=== PATIENT | male | born 1940 | race Caucasian/White ===

== ENCOUNTER 2025-03-19 13:54 | Inpatient (IN) ==
--- NOTE | 2025-03-19 14:31 | XRay Report ---
XR chest 1V portable HISTORY: 84 years-old Male Dysrhythmia acute chest pain COMPARISON: None TECHNIQUE: AP view of the chest FINDINGS: Cardiac silhouette is upper limits of normal in size. Median sternotomy with CABG. Nipple shadows pro ject over the lung bases. Surgical clips of the right neck. No pneumothorax, pleural effusion or pulm onary edema. Mild linear subsegmental bibasilar atelectasis/scarring. 10 mm nodular density projects over the lateral right midlung/posterior right seventh rib. IMPRESSION: 1. Mild bibasilar atelectasis/scarring without acute processes of the chest. 2. A 10 mm calcified granuloma versus rib bone island of the right lateral midlung. ACT 112: Negative or not required by law. The above report was generated using voice recognition software. It may contain grammatical, syntax o r spelling errors. Electronically signed by: Felix Hernandez M.D. 03/19/2025 2:30 PM
--- NOTE | 2025-03-19 14:39 | Emergency Department Note ---
Impression & Plan Syncope and collapse ED Provider Note NAME: ALEX CORTES AGE: 84 SEX: Male INFORMANT: Patient and ED PROVIDER(S): Yovani Hein MD CHIEF COMPLAINT: Syncope PLAN: Disposition: Admitted Outpatient prescription management: none Referral: None MEDICAL DECISION MAKING: Patient presented because of an unprovoked syncopal episode. Patient's ECG did show septal and inferior Q waves. No ST elevation. Cardiac monitoring was reviewed over 3 hours in the emergency department and patient had frequent PVCs but no obvious dysrhythmia. Patient had no additional syncopal episodes. His CBC and chemistry panels were unremarkable. Patient did have elevation of TSH but normal T4. Patient states he has just had his thyroid medication adjusted by his primary. Patient was mildly hypertensive. He is in the high risk for syncope and I discussed further evaluation and management treatment in the hospital. Patient was in agreement. Consultation was made with the [facility]ist service. Case was discussed and diagnostics were reviewed. Patient was evaluated in the ER admitted for further management. Care/management discussed with: manager case management Level of care consideration(s): After review of the information above and other included data, I feel the patient requires escalation of care to admission Triage Nursing notes: reviewed and agree them. Vital Signs: reviewed and remarkable for hypertension Additional History obtained from: Patient's regarding his health today and the details of the episode. Chronic Medical/Social Conditions affecting care: CAD Prior/ Outside/ External records reviewed: None available Differential Diagnosis: Vasovagal event, dehydration, infection, hypoglycemia, electrolyte abnormalities, cardiac sources, intracerebral event, pulmonary embolism, seizure, toxicologic, neurologic, as well as other pathologies. Diagnostics, independently interpreted by me: ECG: Twelve-lead ECG reveals a sinus rhythm with PACs at 76 bpm. Septal and inferior Q waves. No ST elevation or depression. No prior for comparison. Cardiac Monitoring: Cardiac monitoring ordered by me: The patient was placed on continuous cardiac monitoring and observed. The revealed a sinus rhythm with frequent PVCs. No evidence of dysrhythmia Medical decision rules: none Imaging studies: Chest x-ray. Findings: A chest x-ray was performed and revealed no pneumothorax, effusion, infiltrate, pulmonary edema, free air under the diaphragm, or wide mediastinum. Impression: No acute disease. Calcification noted in the right lung. Discussed with patient and he feels he was aware of this. HPI: 84 year old Male arrives for evaluation of syncope. This started abruptly just [employer] and is the second time in about two months. Pt notes feeling fine today. Occurred suddenly, witnessed by bystanders, caught and lowered down. No trauma. Lasted about 2 minutes. The patient also notes the following associated symptoms, none. Saw Cardio in [place] 2 months ago on first episode. 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 Currently on Keytruda for skin cancer. The patient has taken no medication for relieving factors. Current pain is rated as 0/10. Notes a lot of exertion today and decreased PO intake. Pt denies headache, fevers, chills, diaphoresis, visual changes, neck pain, chest pain, breathing difficulties, nausea, vomiting, abdominal pain, back pain, melena, hematochezia, urinary symptoms, numbness, weakness, lymphadenopathy, rash, or other complaints. PAST MEDICAL HISTORY: See Below, CAD, skin cancer PAST SURGICAL HISTORY: See Below, CABG x4 20 yrs ago SOCIAL HISTORY: See Below, HOME MEDICATIONS: See Below ALLERGIES: See Below VITALS: See Below PHYSICAL EXAMINATION: GENERAL: Awake, alert, age appropriate-appearing, in no distress HENT: Normocephalic, atraumatic. Oropharynx unremarkable. EYES: Normal conjunctiva. Sclera non-icteric. NECK: Inspection normal. Non-tender. Supple. No nuchal rigidity. FROM. No masses. RESPIRATORY: Clear to auscultation. No wheezes. No rales. Normal respiratory effort. CARDIAC: Normal rate. Normal rhythm. No murmurs. No rubs. Extremities warm and well perfused. Pulses equal. No JVD. GI: Soft, non-distended. No tenderness to palpation. No rebound or guarding. No masses. RECTAL: Deferred. MUSCULOSKELETAL: Atraumatic. Chest examination reveals no tenderness. The back is symmetrical on inspection without obvious abnormality. There is no CVA tenderness to palpation. No joint edema. LOWER EXTREMITIES: Calves are equal size bilaterally and non-tender. No edema. No discoloration. NEURO: Normal sensorium. No sensory or motor deficits noted. SKIN: No rash or jaundice noted. PROCEDURES: none CRITICAL CARE: none OBSERVATION NOTE: none Past Med/Surg History Problem List (Updated 03/19/25 @ 17:08 by Yovani Hein MD) Syncope and collapse (Acute) Social History Smoking Status: Former smoker Feels Safe at Home: Yes Allergies Allergies Allergy/AdvReac Type Severity Reaction Status Date / Time clopidogrel [From Plavix] Allergy Intermediate Rash Verified 03/19/25 17:06 Home Meds Home Medications Medication Instructions Recorded Confirmed amlodipine 5 mg tablet 5 mg PO DAILY 03/19/25 03/19/25 aspirin 81 mg tablet,delayed 81 mg PO DAILY 03/19/25 03/19/25 release atorvastatin 40 mg tablet 40 mg PO DAILY 03/19/25 03/19/25 levothyroxine 50 mcg tablet 50 mcg PO DAILYBB 03/19/25 03/19/25 lisinopril 10 mg tablet 10 mg PO DAILY 03/19/25 03/19/25 penicillin V potassium 500 mg 500 mg PO QID 03/19/25 03/19/25 tablet Results & Data (ED) Vital Signs Vital Signs - 24 hr 03/19/25 13:59 03/19/25 14:21 03/19/25 14:21 Temperature 36.5 C Temperature Source Oral Pulse Rate 74 75 77 Pulse Rate [Right Finger] Pulse Rate from SpO2 Sensor 78 Respiratory Rate 18 20 Respiratory Effort / Characteristics Non-Labored Spontaneous Respiratory Depth Normal Respiratory Pattern Regular Blood Pressure 174/89 H Blood Pressure [Right Arm] Blood Pressure Mean 117 Blood Pressure Mean [Right Arm] Blood Pressure Position Sitting Pulse Oximetry 97 97 Oxygen Delivery Method Room Air Sepsis Recent Fever Within 48 Hours No Sepsis New/Unexplained Change in Mental Status No Sepsis Action Taken by Nursing No Action Required 03/19/25 14:30 03/19/25 15:13 03/19/25 17:03 Temperature Temperature Source Pulse Rate 73 Pulse Rate [Right Finger] 72 74 Pulse Rate from SpO2 Sensor Respiratory Rate 18 20 16 Respiratory Effort / Characteristics Non-Labored Spontaneous Non-Labored Spontaneous Respiratory Depth Normal Normal Respiratory Pattern Regular Blood Pressure 160/92 H Blood Pressure [Right Arm] 193/93 H 186/104 H Blood Pressure Mean 114 Blood Pressure Mean [Right Arm] 126 131 Blood Pressure Position Pulse Oximetry 96 99 98 Oxygen Delivery Method Room Air Room Air Room Air Sepsis Recent Fever Within 48 Hours Sepsis New/Unexplained Change in Mental Status Sepsis Action Taken by Nursing Laboratory Data 03/19/25 15:36 03/19/25 14:14 Lab Results 03/19/25 03/19/25 03/19/25 Range/Units 14:14 15:36 16:19 WBC Cancelled 6.87 RBC Cancelled 4.55 L Hgb Cancelled 14.0 Hct Cancelled 40.0 L MCV Cancelled 87.9 MCH Cancelled 30.8 MCHC Cancelled 35.0 RDW Std Deviation Cancelled 44.5 RDW Coeff of [place] Cancelled 13.9 Plt Count Cancelled 188 MPV Cancelled 8.6 L Immature Gran % (Auto) Cancelled 0.4 Neut % (Auto) Cancelled 84.2 Lymph % (Auto) Cancelled 5.4 Alcorn % (Auto) Cancelled 8.0 Eos % (Auto) Cancelled 1.6 Baso % (Auto) Cancelled 0.4 Neut # (Auto) Cancelled 5.78 Lymph # (Auto) Cancelled 0.37 L [place] # (Auto) Cancelled 0.55 Eos # (Auto) Cancelled 0.11 Baso # (Auto) Cancelled 0.03 Immature Gran # (Auto) Cancelled 0.03 Absolute Nucleated RBC Cancelled Nucleated RBC % (auto) Cancelled Neutrophils % (Manual) Cancelled Band Neutrophils % Cancelled Lymphocytes % (Manual) Cancelled Prolymphocyte % Cancelled Reactive Lymphs % (Man) Cancelled Monocytes % (Manual) Cancelled Eosinophils % (Manual) Cancelled Basophils % (Manual) Cancelled Metamyelocytes % (Man) Cancelled Myelocytes % (Man) Cancelled Promyelocytes % (Man) Cancelled Blast Cells % (Manual) Cancelled Plasma Cell % (Manual) Cancelled Other Cells % Cancelled Nucleated RBC % Cancelled Neutrophils # (Manual) Cancelled Band Neutrophils # Cancelled Total Absolute Neuts Cancelled Lymphocytes # (Manual) Cancelled Prolymphocyte # Cancelled Reactive Lymphs # Cancelled Total Abs Lymphocytes Cancelled Monocytes # (Manual) Cancelled Eosinophils # (Manual) Cancelled Basophils # (Manual) Cancelled Metamyelocytes # (Man) Cancelled Myelocytes # (Manual) Cancelled Promyelocytes # (Man) Cancelled Blast Cells # (Man) Cancelled Plasma Cell # (Manual) Cancelled Other Cells # Cancelled Nucleated RBCs # (Man) Cancelled Hypersegmented Neuts Cancelled Hyposegmented Neuts Cancelled Hypogranular Neuts Cancelled Large Granular Lymphs Cancelled # Lrg Granular Lymphs Cancelled Hairy Cells Cancelled Smudge Cells Cancelled Toxic Granulation Cancelled Toxic Vacuolation Cancelled Dohle Bodies Cancelled [place] Rods Cancelled Platelet Estimate Cancelled Hypogranular Platelets Cancelled Giant Platelets Cancelled Platelet Satelliting Cancelled RBC Morphology Cancelled Polychromasia Cancelled Hypochromasia Cancelled Poikilocytosis Cancelled Basophilic Stippling Cancelled Anisocytosis Cancelled Microcytosis Cancelled Macrocytosis Cancelled Spherocytes Cancelled Pappenheimer Bodies Cancelled Sickle Cells Cancelled Target Cells Cancelled Tear Drop Cells Cancelled Ovalocytes Cancelled Stomatocytes Cancelled [place] Bodies Cancelled Echinocytes Cancelled Acanthocytes (Spur) Cancelled Rouleaux Cancelled RBC Agglutinates Cancelled Schistocytes Cancelled Sezary Cell Cancelled PT 11.3 (9.0-12.0) Seconds INR 1.0 (0.9-1.1) APTT 24 (21-31) Seconds PTT Ratio 0.9 Sodium 132 L (136-145) mmol/L Potassium 4.0 (3.5-5.1) mmol/L Chloride 101 (98-107) mmol/L Carbon Dioxide 23 (21-32) mmol/L Anion Gap 8 (3-11) BUN 19 (6-23) mg/dl Creatinine 0.80 (0.6-1.4) mg/dl Est Cr Clr Drug Dosing 71.9 ml/min eGFR 86.73 BUN/Creatinine Ratio 23.8 H (10-20) Glucose 124 H (70-99(Fasting)) mg/dl Calcium 9.0 (8.6-10.3) mg/dl Magnesium 1.8 (1.7-2.4) mg/dl Total Bilirubin 0.7 (0.2-1.0) mg/dl AST 15 (13-39) U/L ALT 9 (7-52) U/L Alkaline Phosphatase 119 H (34-104) U/L Troponin I High Sens 6.4 (0-20) pg/ml Total Protein 7.0 (6.0-8.3) gm/dl Albumin 4.1 (3.4-5.0) gm/dl Globulin 2.9 (2.5-4.0) gm/dl Albumin/Globulin Ratio 1.4 (0.9-2) TSH 22.788 H (0.300-4.500) uIu/ml Free T4 0.97 (0.61-1.60) ng/dl Urine Color Yellow Urine Appearance Clear (Clear) Urine pH 7.0 (4.5-7.5) Ur Specific [place] 1.016 (1.000-1.030) Urine Protein 1+ H (Negative) Urine Glucose (UA) Negative (Negative) Urine Ketones Negative (Negative) Urine Blood Negative (Negative) Urine Nitrite Negative (Negative) Urine Bilirubin Negative (Negative) Urine Urobilinogen Positive H (Negative) Ur Leukocyte Esterase Negative (Negative) Urine WBC (Auto) 0-5 (0-5) /hpf Urine RBC (Auto) 0-2 (0-2) /hpf U Hyaline Cast (Auto) 0-2 (0-2) /lpf U Epithel Cells (Auto) 0-2 (0-2) /hpf Urine Bacteria (Auto) None Seen (None Seen) Urine Comment Blood Parasites ID Cancelled Imaging Data Radiologist's Impression: Chest X-Ray 03/19/25 14:06 XR chest 1V portable HISTORY: 84 years-old Male Dysrhythmia acute chest pain COMPARISON: None TECHNIQUE: AP view of the chest FINDINGS: Cardiac silhouette is upper limits of normal in size. Median sternotomy with CABG. Nipple shadows project over the lung bases. Surgical clips of the right neck. No pneumothorax, pleural effusion or pulmonary edema. Mild linear subsegmental bibasilar atelectasis/scarring. 10 mm nodular density projects over the lateral right midlung/posterior right seventh rib. IMPRESSION: 1. Mild bibasilar atelectasis/scarring without acute processes of the chest. 2. A 10 mm calcified granuloma versus rib bone island of the right lateral midlung. ACT 112: Negative or not required by law. The above report was generated using voice recognition software. It may contain grammatical, syntax or spelling errors. Electronically signed by: Felix Hernandez M.D. 03/19/2025 2:30 PM Discharge Plan Visit Data Chief Complaint: Syncope Stated Complaint: SYNCOPE ED Provider: Yovani Hein Discharge Problem: Syncope and collapse Patient Disposition: Admitted As Inpatient Condition: Good Prescriptions Prescriptions: No Action atorvastatin 40 mg tablet 40 mg PO DAILY penicillin V potassium 500 mg tablet 500 mg PO QID Rx Instructions: STARTED 7/23/25 FOR 10 DAYS amlodipine 5 mg tablet 5 mg PO DAILY aspirin 81 mg Tablet,Delayed Release (Dr/Ec) 81 mg PO DAILY levothyroxine 50 mcg tablet 50 mcg PO DAILYBB lisinopril 10 mg tablet 10 mg PO DAILY Referrals Referrals: PCP,NO [Physician] -
[2025-03-19 14:42] LABS: Anion Gap 8.0 (3-11); Bilirubin,Total 0.7 mg/dl (0.2-1.0); Calcium 9.0 mg/dl (8.6-10.3); Carbon Dioxide 23.0 mmol/L (21-32); Chloride 101.0 mmol/L (98-107); Magnesium 1.8 mg/dl (1.7-2.4); Potassium 4.0 mmol/L (3.5-5.1); Sodium 132.0 mmol/L (136-145)
[2025-03-19 14:48] LABS: Alanine Aminotransferase 9.0 U/L (7-52); Albumin Globulin Ratio 1.4 (0.9-2); Alkaline Phosphatase 119.0 U/L (34-104); Blood Urea Nitrogen 19.0 mg/dl (6-23); Creatinine Clr Calc Pharmacy 71.9 ml/min; Globulin 2.9 gm/dl (2.5-4.0); Glucose 124.0 mg/dl (70-99(Fasting)); Total Protein 7.0 gm/dl (6.0-8.3)
[2025-03-19 14:51] LABS: INR 1.0 (0.9-1.1); Partial Thromboplastin Time 24 Seconds (21-31); Prothrombin Time 11.3 Seconds (9.0-12.0)
[2025-03-19 15:02] LABS: Thyroid Stimulating Hormone 22.788 uIu/ml (0.300-4.500)
[2025-03-19 15:50] LABS: Hematocrit (blood only) 40.0 % (42.0-52.0); Hemoglobin 14.0 g/dl (14.0-18.0); Immature Granulocytes # (auto) 0.03 K/uL (0.01-0.20); Immature Granulocytes % (auto) 0.4 %; Mean Corpuscular Hemoglobin 30.8 pg (25.0-34.0); Mean Corpuscular Volume 87.9 fL (80.0-100.0); Platelet Count 188 K/uL (130-400); RDW Standard Deviation 44.5 fL (36.4-46.3); Red Blood Count 4.55 M/uL (4.70-6.10); White Blood Count 6.87 K/ul (4.8-10.8)
[2025-03-19 16:47] LABS: Appearance Urine Clear (Clear); Bacteria Urine Automated None Seen (None Seen); Cast Urine Automated 0-2 /lpf (0-2); Epithelial Cell Urine Auto 0-2 /hpf (0-2); Glucose Urine UA Negative (Negative); RBC Urine Automated 0-2 /hpf (0-2); WBC Urine Automated 0-5 /hpf (0-5)
--- NOTE | 2025-03-19 18:01 | History & Physical Report ---
Date of Service March 19, 2025 Assessment & Plan (1) Syncope and collapse: (2) HTN (hypertension): (3) HLD (hyperlipidemia): (4) Skin cancer: Plan The patient is a 84-year-old male who presented to the ED on 03/19/2025 s/p syncopal episode lasting 2 minutes Syncope: Check CT head, EKG unremarkable, chest x-ray unremarkable, labs fairly unremarkable Telemetry monitoring, consult cardiology, consider Holter monitor on DC Check MRI brain for completeness, check echo, orthostatic BPs Patient on Keytrudapossible side effect of cardiac arrhythmia Hx HTN/HLD/CABG25 years ago: -Continue amlodipine, lisinopril, statin, aspirin Recent dental infection: Continue home penicillin for 10 days as directed, started 2 days ago Hx hypothyroidism: -Elevated TSH, recently increased synthroid from 25mcg to 50mcg 7 days ago, monitor TSH in 6 weeks. Hx skin cancer on Keytruda -follow up outpatient with derm. A total of 60 minutes were spent with chart review/reviewing diagnostic data/discussion with consultants/facilitating plan of care Full code DVT prophylaxis: SCDs History of Present Illness Chief Complaint: Syncope Primary Care Provider: Carlos Redman MD The patient is an 84-year-old male with a past medical history of HTN, HLD, bypass 25 years ago, skin cancer on immunotherapy (keytruda) who presents to the ED on 03/19/2025 after a 2-minute syncopal episode today. Patient reports that he was running errands with his this morning he went to about 5 stores. He reports going to a [employer] restaurant for lunch and when he walked into the restaurant he passed out. He denies any dizziness or lightheadedness prior to this. He reports that one of the workers at the [employer] caught him. Per the , patient was unresponsive for about 2 minutes and came to. No confusion or seizure-like activity associated with this. He also reports about 2 months ago having a similar episode where he passed out. Also under similar circumstances with running around all day and not drinking much water. He saw operators teacher and had an echo done and reports the operators teacher told him he had narrowing of the aorta. His medications were not adjusted at that time and he was to follow-up in a few months. He denies any chest pain or shortness of breath. He denies any recent respiratory viruses any fever/chills. Denies any nausea/vomiting/diarrhea. Reports being very active on a daily basis. On arrival to the ED, labs are fairly unremarkable. NA 132, glucose 124, alk phos 119. TSH 22.788, his levothyroxine was recently adjusted from 25 mcg to 50 mcg by his PCP about a week ago. His chest x-ray was negative. His EKG was unremarkable. He will be admitted for further management of syncopal episodes Allergies Allergy/AdvReac Type Severity Reaction Status Date / Time clopidogrel [From Plavix] Allergy Intermediate Rash Verified 03/19/25 17:06 Home Medications Medication Instructions Recorded Confirmed Type amlodipine 5 mg tablet 5 mg PO DAILY 03/19/25 03/19/25 History aspirin 81 mg tablet,delayed 81 mg PO DAILY 03/19/25 03/19/25 History release atorvastatin 40 mg tablet 40 mg PO DAILY 03/19/25 03/19/25 History levothyroxine 50 mcg tablet 50 mcg PO DAILYBB 03/19/25 03/19/25 History lisinopril 10 mg tablet 10 mg PO DAILY 03/19/25 03/19/25 History penicillin V potassium 500 mg 500 mg PO QID 03/19/25 03/19/25 History tablet Past Med/Surg History Problem List (Updated 03/19/25 @ 18:12 by CARLOS Zuniga) Skin cancer HLD (hyperlipidemia) HTN (hypertension) Syncope and collapse (Acute) Social History Smoking Status: Former smoker Feels Safe at Home: Yes Review of Systems Review of Systems: All systems reviewed & are unremarkable except as noted in HPI & below Physical Exam Constitutional: WD/WN, vitals as above Eyes: PERRL, conjunctivae normal, anicteric sclerae ENMT: external ear and nose normal, oropharynx normal Neck: trachea midline, no thyromegaly Respiratory: normal respiratory effort, lungs clear to auscultation Cardiovascular: RRR, no murmur, no edema Gastrointestinal (Abdomen): normal bowel sounds, soft, nontender, no h epatosplenomegaly Musculoskeletal: no cyanosis or clubbing, extremities motor strength 5/5 Neurologic: PERRL, EOMI, accommodation nl, no face palsy, no dysarthria Psychiatric: A+Ox3, euthymic affect Lymphatic: no cervical or axillary lymphadenopathy Results & Data Results & Data Vital Signs (Past 12 Hours) Vital Signs Temp Pulse Pulse Resp BP BP Pulse Ox 03/19/25 17:03 74 16 186/104 H 98 03/19/25 15:13 72 20 193/93 H 99 03/19/25 14:30 73 18 160/92 H 96 03/19/25 14:21 77 20 97 03/19/25 14:21 75 03/19/25 13:59 36.5 C 74 18 174/89 H 97 O2 Del Method 03/19/25 17:03 Room Air 03/19/25 15:13 Room Air 03/19/25 14:30 Room Air 03/19/25 14:21 03/19/25 14:21 03/19/25 13:59 Room Air Diagnostic Findings Laboratory Results WBC 6.87 K/ul (4.8-10.8) 03/19/25 15:36 RBC 4.55 M/uL (4.70-6.10) L 03/19/25 15:36 Hgb 14.0 g/dl (14.0-18.0) 03/19/25 15:36 Hct 40.0 % (42.0-52.0) L 03/19/25 15:36 MCV 87.9 fL (80.0-100.0) 03/19/25 15:36 MCH 30.8 pg (25.0-34.0) 03/19/25 15:36 MCHC 35.0 g/dL (32.0-36.0) 03/19/25 15:36 RDW Std Deviation 44.5 fL (36.4-46.3) 03/19/25 15:36 RDW Coeff of [place] 13.9 % (11.5-14.5) 03/19/25 15:36 Plt Count 188 K/uL (130-400) 03/19/25 15:36 MPV 8.6 fL (9.4-12.4) L 03/19/25 15:36 Immature Gran % (Auto) 0.4 % 03/19/25 15:36 Neut % (Auto) 84.2 % 03/19/25 15:36 Lymph % (Auto) 5.4 % 03/19/25 15:36 [place] % (Auto) 8.0 % 03/19/25 15:36 Eos % (Auto) 1.6 % 03/19/25 15:36 Baso % (Auto) 0.4 % 03/19/25 15:36 Neut # (Auto) 5.78 K/uL (1.40-6.50) 03/19/25 15:36 Lymph # (Auto) 0.37 K/uL (1.20-3.40) L 03/19/25 15:36 [place] # (Auto) 0.55 K/uL (0.11-0.59) 03/19/25 15:36 Eos # (Auto) 0.11 K/uL (0.00-0.50) 03/19/25 15:36 Baso # (Auto) 0.03 K/uL (0.00-0.20) 03/19/25 15:36 Immature Gran # (Auto) 0.03 K/uL (0.01-0.20) 03/19/25 15:36 Absolute Nucleated RBC Cancelled 03/19/25 14:14 Nucleated RBC % (auto) Cancelled 03/19/25 14:14 Neutrophils % (Manual) Cancelled 03/19/25 14:14 Band Neutrophils % Cancelled 03/19/25 14:14 Lymphocytes % (Manual) Cancelled 03/19/25 14:14 Prolymphocyte % Cancelled 03/19/25 14:14 Reactive Lymphs % (Man) Cancelled 03/19/25 14:14 Monocytes % (Manual) Cancelled 03/19/25 14:14 Eosinophils % (Manual) Cancelled 03/19/25 14:14 Basophils % (Manual) Cancelled 03/19/25 14:14 Metamyelocytes % (Man) Cancelled 03/19/25 14:14 Myelocytes % (Man) Cancelled 03/19/25 14:14 Promyelocytes % (Man) Cancelled 03/19/25 14:14 Blast Cells % (Manual) Cancelled 03/19/25 14:14 Plasma Cell % (Manual) Cancelled 03/19/25 14:14 Other Cells % Cancelled 03/19/25 14:14 Nucleated RBC % Cancelled 03/19/25 14:14 Neutrophils # (Manual) Cancelled 03/19/25 14:14 Band Neutrophils # Cancelled 03/19/25 14:14 Total Absolute Neuts Cancelled 03/19/25 14:14 Lymphocytes # (Manual) Cancelled 03/19/25 14:14 Prolymphocyte # Cancelled 03/19/25 14:14 Reactive Lymphs # Cancelled 03/19/25 14:14 Total Abs Lymphocytes Cancelled 03/19/25 14:14 Monocytes # (Manual) Cancelled 03/19/25 14:14 Eosinophils # (Manual) Cancelled 03/19/25 14:14 Basophils # (Manual) Cancelled 03/19/25 14:14 Metamyelocytes # (Man) Cancelled 03/19/25 14:14 Myelocytes # (Manual) Cancelled 03/19/25 14:14 Promyelocytes # (Man) Cancelled 03/19/25 14:14 Blast Cells # (Man) Cancelled 03/19/25 14:14 Plasma Cell # (Manual) Cancelled 03/19/25 14:14 Other Cells # Cancelled 03/19/25 14:14 Nucleated RBCs # (Man) Cancelled 03/19/25 14:14 Hypersegmented Neuts Cancelled 03/19/25 14:14 Hyposegmented Neuts Cancelled 03/19/25 14:14 Hypogranular Neuts Cancelled 03/19/25 14:14 Large Granular Lymphs Cancelled 03/19/25 14:14 # Lrg Granular Lymphs Cancelled 03/19/25 14:14 Hairy Cells Cancelled 03/19/25 14:14 Smudge Cells Cancelled 03/19/25 14:14 Toxic Granulation Cancelled 03/19/25 14:14 Toxic Vacuolation Cancelled 03/19/25 14:14 Dohle Bodies Cancelled 03/19/25 14:14 Juwan Rods Cancelled 03/19/25 14:14 Platelet Estimate Cancelled 03/19/25 14:14 Hypogranular Platelets Cancelled 03/19/25 14:14 Giant Platelets Cancelled 03/19/25 14:14 Platelet Satelliting Cancelled 03/19/25 14:14 RBC Morphology Cancelled 03/19/25 14:14 Polychromasia Cancelled 03/19/25 14:14 Hypochromasia Cancelled 03/19/25 14:14 Poikilocytosis Cancelled 03/19/25 14:14 Basophilic Stippling Cancelled 03/19/25 14:14 Anisocytosis Cancelled 03/19/25 14:14 Microcytosis Cancelled 03/19/25 14:14 Macrocytosis Cancelled 03/19/25 14:14 Spherocytes Cancelled 03/19/25 14:14 Pappenheimer Bodies Cancelled 03/19/25 14:14 Sickle Cells Cancelled 03/19/25 14:14 Target Cells Cancelled 03/19/25 14:14 Tear Drop Cells Cancelled 03/19/25 14:14 Ovalocytes Cancelled 03/19/25 14:14 Stomatocytes Cancelled 03/19/25 14:14 [place] Bodies Cancelled 03/19/25 14:14 Echinocytes Cancelled 03/19/25 14:14 Acanthocytes (Spur) Cancelled 03/19/25 14:14 Rouleaux Cancelled 03/19/25 14:14 RBC Agglutinates Cancelled 03/19/25 14:14 Schistocytes Cancelled 03/19/25 14:14 Sezary Cell Cancelled 03/19/25 14:14 PT 11.3 Seconds (9.0-12.0) 03/19/25 14:14 INR 1.0 (0.9-1.1) 03/19/25 14:14 APTT 24 Seconds (21-31) 03/19/25 14:14 PTT Ratio 0.9 03/19/25 14:14 Sodium 132 mmol/L (136-145) L 03/19/25 14:14 Potassium 4.0 mmol/L (3.5-5.1) 03/19/25 14:14 Chloride 101 mmol/L (98-107) 03/19/25 14:14 Carbon Dioxide 23 mmol/L (21-32) 03/19/25 14:14 Anion Gap 8 (3-11) 03/19/25 14:14 BUN 19 mg/dl (6-23) 03/19/25 14:14 Creatinine 0.80 mg/dl (0.6-1.4) 03/19/25 14:14 Est Cr Clr Drug Dosing 71.9 ml/min 03/19/25 14:14 eGFR 86.73 03/19/25 14:14 BUN/Creatinine Ratio 23.8 (10-20) H 03/19/25 14:14 Glucose 124 mg/dl (70-99(Fasting)) H 03/19/25 14:14 Calcium 9.0 mg/dl (8.6-10.3) 03/19/25 14:14 Magnesium 1.8 mg/dl (1.7-2.4) 03/19/25 14:14 Total Bilirubin 0.7 mg/dl (0.2-1.0) 03/19/25 14:14 AST 15 U/L (13-39) 03/19/25 14:14 ALT 9 U/L (7-52) 03/19/25 14:14 Alkaline Phosphatase 119 U/L (34-104) H 03/19/25 14:14 Troponin I High Sens 6.4 pg/ml (0-20) 03/19/25 14:14 Total Protein 7.0 gm/dl (6.0-8.3) 03/19/25 14:14 Albumin 4.1 gm/dl (3.4-5.0) 03/19/25 14:14 Globulin 2.9 gm/dl (2.5-4.0) 03/19/25 14:14 Albumin/Globulin Ratio 1.4 (0.9-2) 03/19/25 14:14 TSH 22.788 uIu/ml (0.300-4.500) H 03/19/25 14:14 Free T4 0.97 ng/dl (0.61-1.60) 03/19/25 14:14 Urine Color Yellow 03/19/25 16:19 Urine Appearance Clear (Clear) 03/19/25 16:19 Urine pH 7.0 (4.5-7.5) 03/19/25 16:19 Ur Specific [place] 1.016 (1.000-1.030) 03/19/25 16:19 Urine Protein 1+ (Negative) H 03/19/25 16:19 Urine Glucose (UA) Negative (Negative) 03/19/25 16:19 Urine Ketones Negative (Negative) 03/19/25 16:19 Urine Blood Negative (Negative) 03/19/25 16:19 Urine Nitrite Negative (Negative) 03/19/25 16:19 Urine Bilirubin Negative (Negative) 03/19/25 16:19 Urine Urobilinogen Positive (Negative) H 03/19/25 16:19 Ur Leukocyte Esterase Negative (Negative) 03/19/25 16:19 Urine WBC (Auto) 0-5 /hpf (0-5) 03/19/25 16:19 Urine RBC (Auto) 0-2 /hpf (0-2) 03/19/25 16:19 U Hyaline Cast (Auto) 0-2 /lpf (0-2) 03/19/25 16:19 U Epithel Cells (Auto) 0-2 /hpf (0-2) 03/19/25 16:19 Urine Bacteria (Auto) None Seen (None Seen) 03/19/25 16:19 Urine Comment 03/19/25 16:19 Blood Parasites ID Cancelled 03/19/25 14:14 Impressions Chest X-Ray 03/19/25 14:06 XR chest 1V portable HISTORY: 84 years-old Male Dysrhythmia acute chest pain COMPARISON: None TECHNIQUE: AP view of the chest FINDINGS: Cardiac silhouette is upper limits of normal in size. Median sternotomy with CABG. Nipple shadows project over the lung bases. Surgical clips of the right neck. No pneumothorax, pleural effusion or pulmonary edema. Mild linear subsegmental bibasilar atelectasis/scarring. 10 mm nodular density projects over the lateral right midlung/posterior right seventh rib. IMPRESSION: 1. Mild bibasilar atelectasis/scarring without acute processes of the chest. 2. A 10 mm calcified granuloma versus rib bone island of the right lateral midlung. ACT 112: Negative or not required by law. The above report was generated using voice recognition software. It may contain grammatical, syntax or spelling errors. Electronically signed by: Felix Hernandez M.D. 03/19/2025 2:30 PM
--- NOTE | 2025-03-19 18:03 | Communication Note ---
Date of Service: March 19, 2025 Attending Addendum: Case reviewed with the advanced practitioner. I have personally performed a history and physical examination on the patient. I have reviewed the advanced practitioner's documentation on the date of service referenced in note, and I agree with, and take responsibility for the plan of care. please refer to her notes for full details patient seen and examined, records reviewed by myself as well on exam, patient seen resting in bed, comfortable, sitting up having dinner, in good spirits, very pleasant at bedside states he feels fine overall no active dizziness, chest pain, shortness of breath, palpitations states he was not drinking enough water today states he had no symptoms before the syncopal episode no confusion after noted his hands were shaking when he was unresponsive, but not generalized rigidity, leg shaking no other symptoms VS noted and reviewed oriented x3 , not in distress, speaks in sentences with no effort nor accessory muscle use normal rate, regular rhythm, no murmurs clear breath sounds bilaterally non distended, soft, nontender no bipedal edema, erythema, warmth no neuro deficits all labs, imaging noted and reviewed ASSESSMENT AND PLAN> 84 year old male with history of CAD, CABG, HTN, Hypothyroidism... RECURRENT SYNCOPE 2nd episode, no prodrome on both instances EKG sinus rhythm with PACs likely Cardiac etiology possible arrhythmia, telemetry monitoring, Zio patch as outpatient possible valvular disease, Echocardiogram ordered Cardiology service evaluation r/o Neurologic etiology CT head stat Brain MRI EEG r/o Orthostasis Ortho VS SKIN CANCER on Keytruda- adverse reaction: cardiac arrhythmia 4-11% may need to hold above until further work up Other chronic problems: CAD CABG HTN Hypothyroidism other diagnoses and plan of care as per advanced practitioner's notes I spent a total of 40 minutes coordinating, documenting, and providing care for this patient, excluding time spent in the performance of separately billed services or time spent by another provider/QHP. Paulo Kilgore MD
[2025-03-19] MEDS ORDERED: ACETAMINOPHEN 325 MG TAB PO PRN (20:01)
--- NOTE | 2025-03-19 20:28 | CT Scan Report ---
EXAM: CT head/brain wo con CLINICAL HISTORY: Syncope TECHNIQUE: Axial non-contrast CT scan of the brain was performed from the skull base to the high parietal region. One of the following dose reduction techniques were utilized for this exam: Automated exposure control, adjustment of the mA and/or kV according to patient size, use of iterative reconstruction. COMPARISON: None FINDINGS: Brain Parenchyma: accentuation of bilateral cerebral periventricular white matter hypodensity denoting hypoperfusion. No evidence of acute infarct, hemorrhage, or mass effect. Ventricular System: Prominent ventricles and extraaxial CSF spaces. No evidence of subarachnoid hemorrhage or extra-axial fluid collections. Cerebellum and Brainstem: No masses, lesions, or areas of abnormal density. Orbits: Normal appearance of the globes, optic nerves, and extraocular muscles. No evidence of orbital masses or abnormal density. Sinuses: Clear paranasal sinuses. No evidence of sinusitis or mucosal thickening. Mastoid Air Cells: Bilateral otomastoiditis. ICA and vertebral atheromatous calcifications. Skull: Right high parietal craniotomy flap showing mottled osseous texture. minimal underlying thickening. no underlying collection or masses. IMPRESSION: 1. 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 2. No CT evidence of acute vascular insult. If still of concern, a dedicated MRI including stroke protocol would be recommended. 3. Brain involutional changes. 4. Right high parietal craniotomy flap showing mottled osseous texture. no underlying collection or masses. correlate clinically. 5. Bilateral otomastoiditis. Electronically signed by Thang Ruiz 03-19-2025 8:27 PM
[2025-03-19] MEDS: PENICILLIN V POTASSIUM 500 MG TAB PO SCH (20:39)
--- NOTE | 2025-03-19 21:56 | Electrocardiogram Report ---
Test Reason : Blood Pressure : */* mmHG Vent. Rate : 76 BPM Atrial Rate : 76 BPM P-R Int : 194 ms QRS Dur : 94 ms QT Int : 390 ms P-R-T Axes : -28 -9 -21 degrees QTcB Int : 438 ms Sinus rhythm with Premature atrial complexes Septal infarct , age undetermined Inferior infarct , age undetermined Abnormal ECG No previous ECGs available Confirmed by Santos Rene ([id number]) on 03/19/2025 9:55:55 PM Referred By: Confirmed By: Santos Rene
[2025-03-19 22:49] VITALS: RESP 18
[2025-03-20] MEDS: LEVOTHYROXINE SODIUM 50 MCG TABLET PO SCH (05:45)
[2025-03-20 06:41] LABS: Hematocrit (blood only) 38.5 % (42.0-52.0); Hemoglobin 13.9 g/dl (14.0-18.0); Immature Granulocytes # (auto) 0.01 K/uL (0.01-0.20); Immature Granulocytes % (auto) 0.2 %; Mean Corpuscular Hemoglobin 31.7 pg (25.0-34.0); Mean Corpuscular Volume 87.7 fL (80.0-100.0); Platelet Count 206 K/uL (130-400); RDW Standard Deviation 43.7 fL (36.4-46.3); Red Blood Count 4.39 M/uL (4.70-6.10); White Blood Count 5.42 K/ul (4.8-10.8)
--- NOTE | 2025-03-20 06:45 | Magnetic Resonance Report ---
MR brain wo con HISTORY: 84 years-old Male syncope acute syncope in a patient with prior right-sided craniotomy COMPARISON: Head CT of same day TECHNIQUE: Multiplanar multisequence MRI of the brain was obtained without IV contrast FINDINGS: No restricted diffusion to suggest acute or subacute infarct. Midline structures appear unremarkable. Degenerative changes of the cervical spine. No acute intracranial hemorrhage, midline shift, abnorma l extra-axial collection, hydrocephalus or intra-axial mass. Involutional changes with moderate to ex tensive T2/FLAIR hyperintense foci throughout the white matter. Large mastoid effusions. Prior bilateral lens repair. Minimal mucosal thickening of the paranasal sin uses. Prior right frontal craniotomy. IMPRESSION: 1. No acute intracranial abnormality, specifically no acute or subacute infarct. 2. Involutional changes with chronic microvascular ischemic disease. 3. Prior right frontal craniotomy. 4. Large mastoid effusions redemonstrated. ACT 112: Negative or not required by law. The above report was generated using voice recognition software. It may contain grammatical, syntax o r spelling errors. Electronically signed by: Felix Hernandez M.D. 03/20/2025 6:42 AM
[2025-03-20 07:00] LABS: Alanine Aminotransferase 9.0 U/L (7-52); Albumin Globulin Ratio 1.3 (0.9-2); Alkaline Phosphatase 124.0 U/L (34-104); Anion Gap 6.0 (3-11); Bilirubin,Total 0.7 mg/dl (0.2-1.0); Blood Urea Nitrogen 15.0 mg/dl (6-23); Calcium 8.9 mg/dl (8.6-10.3); Carbon Dioxide 27.0 mmol/L (21-32); Chloride 99.0 mmol/L (98-107); Creatinine Clr Calc Pharmacy 71.9 ml/min; Globulin 2.9 gm/dl (2.5-4.0); Glucose 114.0 mg/dl (70-99(Fasting)); Magnesium 1.9 mg/dl (1.7-2.4); Potassium 4.0 mmol/L (3.5-5.1); Sodium 132.0 mmol/L (136-145); Total Protein 6.7 gm/dl (6.0-8.3)
[2025-03-20 07:15] VITALS: BP 145/84; TEMP 98.4; O2SAT 96
--- NOTE | 2025-03-20 08:15 | Cardiology Consultation ---
Date of Consultation March 20, 2025 History of Present Illness Reason for Consultation: Syncope Requesting Physician: Nisha tolbertist Attending Physician: Pantera Chavez DO History of Present Illness HPI: Patient Allergies Allergy/AdvReac Type Severity Reaction Status Date / Time clopidogrel [From Plavix] Allergy Intermediate Rash Verified 03/19/25 17:06 tramadol Allergy Rash Verified 03/20/25 00:47 Home Medications Medication Instructions Recorded Confirmed Type amlodipine 5 mg tablet 5 mg PO DAILY 03/19/25 03/19/25 History aspirin 81 mg tablet,delayed 81 mg PO DAILY 03/19/25 03/19/25 History release atorvastatin 40 mg tablet 40 mg PO DAILY 03/19/25 03/19/25 History levothyroxine 50 mcg tablet 50 mcg PO DAILYBB 03/19/25 03/19/25 History lisinopril 10 mg tablet 10 mg PO DAILY 03/19/25 03/19/25 History penicillin V potassium 500 mg 500 mg PO QID 03/19/25 03/19/25 History tablet Patient History Social History Smoking Status: Former smoker Tobacco Type: Cigarettes and Pipe Smoking End Date: 1974; Second Hand Exposure: No; Do You Dip or Chew Tobacco: No; Tobacco Cessation Education Requested by Patient: No Hx Alcohol Use: Yes Alcohol type: beer Hx Substance Use: No Preferred Language: Danish Communication Ability: Effective 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 Beliefs That Will Affect Care: None Current Living Situation: Spouse Other Information That Helps Us Care for You: No Feels Safe at Home: Yes Assistive Devices: Glasses and Hearing Aid - Bilateral Results & Data Vital Signs (Past 12 Hours) Vital Signs Temp Pulse Pulse Resp BP Pulse Ox O2 Del Method 03/20/25 07:14 36.9 C 76 18 145/84 H 96 Room Air 03/20/25 02:54 36.8 C 68 18 98/60 L 92 Room Air 03/19/25 22:49 36.8 C 71 18 131/71 92 Room Air 03/19/25 21:50 72 PG Care Time/CCT Total # of Minutes Spent Total Time Spent with Patient: Total time spent is greater than 50% in coordination of care (as documented) at patient's floor/unit and/or counseling patient: Coding
--- NOTE | 2025-03-20 08:38 | Communication Note ---
Date of Service: March 20, 2025 By CMS guidelines, a determination that the admission or continued stay is not medically necessary has been made by a member of the UR committee and a phys ician for this hospital stay, therefore a Code 44 will be completed and the Inpatient admission will be changed to outpatient.
--- NOTE | 2025-03-20 08:43 | Discharge Summary ---
Discharge Summary Date of Service March 20, 2025 Principal Dx & Hospital Course #1 = Principal Diagnosis (1) Orthostatic syncope: (2) Dehydration after exertion: (3) HTN (hypertension): (4) HLD (hyperlipidemia): (5) Skin cancer: Plan Patient 84-year-old gentleman who is really quite active and is in the area for vacation presented to the emergency room after syncopal event. Patient was monitored in the hospital. There was no significant arrhythmias. Additional history revealed that the patient had only drank a small amount of water early in the morning for breakfast. I subsequently were quite active doing a lot of shopping and in and out of stores and loading the vehicle with provisions for his cabin. Patient states that he was riding in his car and quickly jumped out of the car to check on a restaurant and as he entered the restaurant he had a syncopal event. Here in the hospital he did have positive orthostatic vital signs. He significantly improved after hydration. Patient's history is classic for orthostasis due to dehydration caused by poor oral intake and significant exertion on a hot humid day. Patient had no chest pain. No shortness of breath. Other vital signs and laboratory studies stable. Patient follows regularly with his home PCP and gumming machine operator. He be discharged home after some additional fluid resuscitation. By CMS guidelines, a determination that the admission or continued stay is not medically necessary has been made by a member of the UR committee and a physician for this hospital stay, therefore a Code 44 will be completed and the Inpatient admission will be changed to outpatient. Notes For Next Care Provider Consider outpatient ZIO monitoring Recheck TSH in approximate 4 to 6 weeks due to recent increased dose. 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 Patient reports that he was running errands with his this morning he went to about 5 stores. He reports going to a [employer] restaurant for lunch and when he walked into the restaurant he passed out. He denies any dizziness or lightheadedness prior to this. He reports that one of the workers at the [employer] caught him. Per the , patient was unresponsive for about 2 minutes and came to. No confusion or seizure-like activity associated with this. He also reports about 2 months ago having a similar episode where he passed out. Also under similar circumstances with running around all day and not drinking much water. He saw gumming machine operator and had an echo done and reports the gumming machine operator told him he had narrowing of the aorta. His medications were not adjusted at that time and he was to follow-up in a few months. He denies any chest pain or shortness of breath. He denies any recent respiratory viruses any fever/chills. Denies any nausea/vomiting/diarrhea. Reports being very active on a daily basis. On arrival to the ED, labs are fairly unremarkable. NA 132, glucose 124, alk phos 119. TSH 22.788, his levothyroxine was recently adjusted from 25 mcg to 50 mcg by his PCP about a week ago. His chest x-ray was negative. His EKG was unremarkable. He will be admitted for further management of syncopal episodes Admission Exam Per Admitting Provider See H&P Discharge Exam Constitutional: Alert, nontoxic HEENT: Mucous membranes moist. Lungs: Clear to auscultation, decreased, no wheezes rales or rhonchi CV: S1-S2, regular, systolic murmur Abdomen: Soft, nontender, nondistended Extremities: No significant edema Neuro: No focal deficits Psych: Cooperative, normal mood Updated Medication List Medication Instructions Recorded Confirmed Type amlodipine 5 mg tablet 5 mg PO DAILY 03/19/25 03/19/25 History aspirin 81 mg tablet,delayed 81 mg PO DAILY 03/19/25 03/19/25 History release atorvastatin 40 mg tablet 40 mg PO DAILY 03/19/25 03/19/25 History levothyroxine 50 mcg tablet 50 mcg PO DAILYBB 03/19/25 03/19/25 History lisinopril 10 mg tablet 10 mg PO DAILY 03/19/25 03/19/25 History penicillin V potassium 500 mg 500 mg PO QID 03/19/25 03/19/25 History tablet Hospital Stay Data Consultations 03/19/25 16:59 ED Decision to Admit Stat Diagnostic Imagining Performed 03/19/25 17:50 CT Brain [CT head/brain wo con] Stat MR brain wo con Routine Reviewed imaging, laboratory and diagnostic studies. Pertinent findings as below. WBCs 5.4 Hemoglobin 13.9 Platelets of 206 Electrolytes stable Creatinine 0.80 Troponin negative Urinalysis unremarkable MRI of the brain negative for acute findings Pending Results Patient Have Any Pending Studies at Discharge: No Discharge Instructions Given to Patient (Per Discharging Provider) Stay well-hydrated. Take frequent breaks from your activities to hydrate and eat. Follow-up with your PCP next 7 to 10 days. Discussed with him whether his ZIO monitor would be appropriate or sooner follow-up with your gumming machine operator You should have your thyroid/TSH rechecked in approximately 4 to 6 weeks with the recent increase in your Synthroid dose. Total Time Total Time Spent Total Time Spent (In Minutes): 26
[2025-03-20] MEDS: SODIUM CHLORIDE 0.9% 1,000 ML IV ONE (08:59)
[2025-03-20] MEDS: ASPIRIN 81 MG ECTAB PO SCH (09:00)
[2025-03-20] MEDS: ATORVASTATIN 40 MG TAB PO SCH (09:01)
[2025-03-20 09:36] VITALS: PULSE 76
--- NOTE | 2025-03-23 06:02 | Electrocardiogram Report ---
Test Reason : Blood Pressure : */* mmHG Vent. Rate : 75 BPM Atrial Rate : 75 BPM P-R Int : 178 ms QRS Dur : 94 ms QT Int : 394 ms P-R-T Axes : 67 37 49 degrees QTcB Int : 439 ms Normal sinus rhythm Anteroseptal infarct (cited on or before 19-Mar-2025) Abnormal ECG When compared with ECG of 19-Mar-2025 14:00, Premature atrial complexes are no longer Present Criteria for Inferior infarct are no longer Present Questionable change in initial forces of Anterior leads T wave inversion no longer evident in Inferior leads Nonspecific T wave abnormality now evident in Lateral leads Confirmed by Bennett Hill ([id number]) on 03/23/2025 6:01:48 AM Referred By: REFERRED SELF Confirmed By: Bennett Hill
== END 2025-03-20 11:06 | disposition home or self-care (01) | DRG 312 ==
LOC: EDBD → ED 13:54 → 2S 17:02 → SUATTDRO 17:02 → 2S 18:15